=== PATIENT | female | born 1985 | race African-American/Black ===

== ENCOUNTER 2016-08-11 06:43 | Emergency (ER) | payer OTHER ==
[~2016-08-11] VITALS: Ht 160 cm; Wt 103.0 kg
[~2016-08-11 06:43] MED LIST: ALBU2.5V13 NEB; PREN-88 PO
[2016-08-11] MEDS ORDERED: METHYLPREDNISOLONE SOD SUCC 125 MG/2 ML VIAL IM ONE (11:00)
[2016-08-11] MEDS ORDERED: IPRATROPIUM/ALBUTEROL 0.5-3(2.5)MG/3ML NEB HHN ONE (11:00)
[2016-08-11 11:17] VITALS: BP 132/77
== END 2016-08-11 13:33 | disposition home or self-care (01) ==
LOC: ER 06:45
DX: J45.901 Unspecified asthma with (acute) exacerbation (principal)
CPT/HCPCS: 94640; 96372; 99283; J2930; Z7610; 99284; J7620

== ENCOUNTER 2016-09-17 00:52 | Emergency (ER) | payer OTHER ==
[~2016-09-17] VITALS: Ht 160 cm; Wt 118.0 kg
[2016-09-17] MEDS ORDERED: ALBUTEROL (0.083%) 2.5MG/3ML NEB HHN STA (01:08)
[2016-09-17] MEDS ORDERED: IPRATROPIUM BROMIDE (0.02%) 0.5MG/2.5ML NEB HHN STA (01:08)
[2016-09-17] MEDS ORDERED: SODIUM CHLORIDE 0.9% 1,000 ML IV ONE ×2 (01:08→04:11)
[2016-09-17] MEDS ORDERED: METHYLPREDNISOLONE SOD SUCC 125 MG/2 ML VIAL IV STA (01:08)
[2016-09-17] MEDS ORDERED: MAGNESIUM 2 G PREMIX 50 ML IV ONE (01:15)
[2016-09-17 01:24] LABS: BASOPHILS % 0.7 % (0.0-2.0); EOSINOPHILS % 5.3 % (0.0-5.0); HEMATOCRIT. 30.3 % (36.0-48.0); LYMPHOCYTES % 23.5 % (20.0-50.0); MEAN CORPUSCULAR HEMOGLOBIN 27.2 pg (28.0-32.0); MEAN CORPUSCULAR VOLUME 82.2 fL (81.0-99.0); MEAN PLATELET VOLUME 7.9 fl (7.4-10.4); MONOCYTES % 8.3 % (2.0-8.0); NEUTROPHILS % 62.2 % (40.0-76.0); PLATELET 194 x1000/uL (130-400); RED BLOOD CELL COUNT 3.69 mill/uL (4.2-5.4); RED CELL DISTRIBUTION WIDTH 14.2 % (11.6-14.6)
[2016-09-17 01:29] LABS: CHLORIDE 108 mEq/L (98-107)
[2016-09-17 01:38] LABS: CARBON DIOXIDE 21 mEq/L (21-32)
[2016-09-17] MEDS ORDERED: MAGNESIUM/ALUMINUM HYDROXIDE/SIMETHICONE 30ML UDC PO ONE (04:15)
[2016-09-17 04:35] VITALS: BP 131/71
== END 2016-09-17 06:05 | disposition home or self-care (01) ==
LOC: ER 00:52
DX: O99.513 Diseases of the respiratory system complicating pregnancy, third trimester (principal); J45.901 Unspecified asthma with (acute) exacerbation; O26.893 Other specified pregnancy related conditions, third trimester; R03.0 Elevated blood-pressure reading, without diagnosis of hypertension; Z3A.32 32 weeks gestation of pregnancy
CPT/HCPCS: 36415; 71010; 80053; 85025; 94644; 96361; 96365; 96366; 96375; 99285; J2930; J3475; J7030; J7611

== ENCOUNTER 2018-04-09 07:36 | Emergency (ER) | payer MEDICAID, OTHER ==
[~2018-04-09] VITALS: Ht 167.6 cm; Wt 80.0 kg
[2018-04-09] MEDS ORDERED: PREDNISONE 20MG TABLET PO STA (08:03)
[2018-04-09] MEDS ORDERED: IPRATROPIUM BROMIDE (0.02%) 0.5MG/2.5ML NEB HHN STA (08:03)
[2018-04-09] MEDS ORDERED: ALBUTEROL (0.083%) 2.5MG/3ML NEB HHN STA (08:03)
[2018-04-09 09:42] VITALS: BP 124/68
== END 2018-04-09 09:45 | disposition home or self-care (01) ==
LOC: ER 07:42
DX: O99.513 Diseases of the respiratory system complicating pregnancy, third trimester (principal); J45.901 Unspecified asthma with (acute) exacerbation
CPT/HCPCS: 93005; 94644; 99285; J7512; J7611